=== PATIENT | female | born 1980 | race African-American/Black ===

== ENCOUNTER 2020-10-26 21:10 | Emergency (ER) | payer BC, OTHER ==
[2020-10-26 21:28] VITALS: BP 135/83; PULSE 92; TEMP 98.3; BMI 33.0
== END 2020-10-27 07:05 | disposition home or self-care (01) ==
LOC: JERFT 21:10
DX: M67.432 Ganglion, left wrist (principal)
CPT/HCPCS: 73110-TC-LT-FY; 99283-25

== ENCOUNTER 2024-02-15 10:53 | Emergency (ER) | payer BC ==
[2024-02-15 10:59] VITALS: BP 135/48; PULSE 92; RESP 18; TEMP 97.4; BMI 35.5
[2024-02-15] MEDS ORDERED: LIDOCAINE 4% PATCH TP ONE (11:18)
[2024-02-15] MEDS ORDERED: KETOROLAC TROMETHAMINE 30 MG/1 ML VIAL ONE (11:18)
[2024-02-15] MEDS ORDERED: METHOCARBAMOL 500 MG TABLET ONE (11:18)
[2024-02-15] MEDS: LIDOCAINE 4% PATCH TP ONE (11:31)
[2024-02-15] MEDS: METHOCARBAMOL 500 MG TABLET PO ONE (11:32)
[2024-02-15] MEDS: KETOROLAC TROMETHAMINE 30 MG/1 ML VIAL IM ONE (11:32)
[2024-02-15 13:26] LABS: HIV INTERPRETATION NEGATIVE (NEGATIVE)
== END 2024-02-15 11:45 | disposition home or self-care (01) ==
LOC: JERFT 10:53
PROC: 3E0133Z Introduction of Anti-inflammatory into Subcutaneous Tissue, Percutaneous Approach (ICD-10-PCS; principal; 2024-02-15)
DX: M62.830 Muscle spasm of back (principal)
CPT/HCPCS: 36415; 86803; 87389; 99284-25